=== PATIENT | female | born 1975 | race Hispanic/Latino ===

== ENCOUNTER 2022-10-21 18:19 | Emergency (ER) | payer OTHER ==
[~2022-10-21] VITALS: Ht 160 cm; Wt 93.4 kg
[~2022-10-21 18:19] MED LIST: Z.0.ADDERALL 20 MG20 PO
[2022-10-21] MEDS ORDERED: AMOXICILLIN/CLAVULANATE K 875 MG TAB PO STA (19:47)
[2022-10-21] MEDS ORDERED: AMOX TR-K CLV1 EAC2 PO (19:55)
[2022-10-21] MEDS ORDERED: DIFLUCAN150 MG PO (19:57)
[2022-10-21] MEDS ORDERED: DEXAMETHASONE SOD PHOS INJ 4 MG/ML SDV IM ONE (20:00)
[2022-10-21] MEDS ORDERED: AMOXICILLIN/CLAVULANATE K 875 MG TAB ONE (20:05)
[2022-10-21] MEDS ORDERED: DEXAMETHASONE SOD PHOS INJ 4 MG/ML SDV ONE (20:05)
[2022-10-21 20:18] VITALS: BP 126/71
== END 2022-10-21 20:08 | disposition home or self-care (01) ==
LOC: FSED 18:39
DX: K11.21 Acute sialoadenitis (principal); K21.9 Gastro-esophageal reflux disease without esophagitis; F98.8 Other specified behavioral and emotional disorders with onset usually occurring in childhood and adolescence
CPT/HCPCS: 99283; J1100